=== PATIENT | female | born 1955 | race Caucasian/White ===

== ENCOUNTER 2016-03-22 10:16 | Day surgery (SDC) | payer OTHER ==
[~2016-03-22] VITALS: Ht 152.4 cm; Wt 75.7 kg
[2016-03-22] VITALS (10 sets, daily range): BP systolic 100–128; BP diastolic 50–65; PULSE 62–84; RESP 16–20; Ht 152.4 cm; Wt 75.7 kg
[~2016-03-22 10:16] MED LIST: EPHEDrine SULFATE 50 MG/5 ML SYG ONE; LISI40TA9 PO; MELOXICAM PO; NAPROXEN PO
[2016-03-22] MEDS ORDERED: BUPIVACAINE 0.5% (SDV) 30 ML INJ ONE (12:08)
[2016-03-22] MEDS ORDERED: POVIDONE IODINE 10% 28.4 GM OINT ONE (12:08)
[2016-03-22] MEDS ORDERED: LIDOCAINE 1% (MPF) 30 ML INJ ONE (12:08)
[2016-03-22] MEDS ORDERED: METOCLOPRAMIDE 10 MG INJ ONE (12:18)
[2016-03-22] MEDS ORDERED: PROPOFOL 20 ML ONE (12:18)
[2016-03-22] MEDS ORDERED: ONDANSETRON 4 MG INJ ONE (12:18)
[2016-03-22] MEDS ORDERED: MIDAZOLAM 1 MG/ML 2 ML INJ ONE (12:18)
[2016-03-22] MEDS ORDERED: CEFAZOLIN 1 GM INJ ONE (12:20)
[2016-03-22] MEDS ORDERED: OXYCODONE/ACETAMINOPHEN (5/325) TAB PO PRN ×2 (13:00)
[2016-03-22] MEDS ORDERED: ONDANSETRON 4 MG INJ IV PRN (13:00)
[2016-03-22] MEDS ORDERED: MEPERIDINE 25 MG INJ IV PRN (13:00)
[2016-03-22] MEDS ORDERED: HYDROmorphONE (0.2 MG/ML) 10ML SYG IV PRN ×3 (13:00)
[2016-03-22] MEDS ORDERED: DIPHENHYDRAMINE 50 MG INJ IV PRN (13:00)
--- NOTE | 2016-03-22 14:46 | PREOPHP ---
DATE OF ADMISSION: 03/22/2016 HISTORY OF PRESENT ILLNESS: The patient is being admitted to the hospital for elective foot surgery . Palliative treatment unsuccessful. The patient has been explained surgery, complications, altern atives and elected to have elective foot surgery. The patient is having pain at the IP joint of the hallux on the right foot. ALLERGIES: THE PATIENT DENIES ALLERGIES TO ANY MEDICINE. MEDICATIONS: Denies taking medicines, other for high blood pressure. REVIEW OF SYSTEMS: She denies heart lung, liver, kidney or thyroid. Denies diabetes. SOCIAL HISTORY: Denies smoking or alcohol. PHYSICAL EXAMINATION: See any other pertinent history and upper extremity physical exam by Dr. Pancho garcia. LOWER EXTREMITIES: Shows DP and PT at +3. NEUROLOGICAL: Negative for pathology. DERMATOLOGICAL: Negative for pathology. MUSCULOSKELETAL: X-ray findings show a deformed IP joint hallux, right foot. FINAL DIAGNOSIS: Deformed IP joint hallux, right foot. Dictated By: GERMÁN HARRIS/KRISTIN Conf#: [id number] DID#: [id number]
== END 2016-03-22 16:00 | disposition home or self-care (01) ==
LOC: SDS 10:16
PROVIDERS: ATTEND Podiatrist
DX: M21.6X1 Other acquired deformities of right foot (principal); I10 Essential (primary) hypertension
CPT/HCPCS: 28124; 88304; 88311; J0690; J2250; J2765; L3260; Z7512; Z7610; J2405